=== PATIENT | male | born 1960 | race Caucasian/White ===

== ENCOUNTER 2017-07-06 11:55 | Emergency (ER) | payer MEDICARE, MEDICAID ==
[2017-07-06 11:55] VITALS: BMI 23.0
[2017-07-06 12:03] VITALS: TEMP 98.1
--- NOTE | 2017-07-06 12:37 | ED PDOC ---
Arrival/HPI - General Chief Complaint: ENT Problem Time Seen by Provider: 07/06/17 12:34 Historian: Patient - History of Present Illness Narrative History of Present Illness (Text): 07/06/17 12:37 Mercedes Caruso is a 57 year old male, with no significant past medical history , who presents to the emergency department complaining of bilateral ear pain for 3 weeks. He describes the pain as a ringing. Denies uri symptoms. Patient' s mother is in the emergency department for similar symptoms. Patient denies any fever, sore throat, chills, chest pain, shortness of breath, nausea, vomiting, diarrhea, back pain, neck pain, headache, dizziness or any other complaints. 07/06/17 13:23 Time/Duration: < month (3 weeks) Symptom Onset: Gradual Symptom Course: Unchanged Activities at Onset: Light Context: Home Past Medical History - Provider Review Nursing Documentation Reviewed: Yes - Infectious Disease Hx of Infectious Diseases: None - Cardiac Hx Cardiac Disorders: No - Pulmonary Hx Respiratory Disorders: No - Neurological Hx Neurological Disorder: No - HEENT Hx HEENT Disorder: No - Renal Hx Renal Disorder: No - Endocrine/Metabolic Hx Endocrine Disorders: Yes Hx Diabetes Mellitus Type 1: Yes - Hematological/Oncological Hx Blood Disorders: Yes Hx Hepatitis C: Yes - Integumentary Hx Dermatological Disorder: No - Musculoskeletal/Rheumatological Hx Musculoskeletal Disorders: No - Gastrointestinal Hx Gastrointestinal Disorders: Yes Hx Gall Bladder Disease: Yes - Genitourinary/Gynecological Hx Genitourinary Disorders: No - Psychiatric Hx Psychophysiologic Disorder: No Hx Substance Use: No - Surgical History Hx Cholecystectomy: Yes - Anesthesia Hx Anesthesia: Yes Hx Anesthesia Reactions: No Hx Malignant Hyperthermia: No - Suicidal Assessment Feels Threatened In Home Enviroment: No Family/Social History - Physician Review Nursing Documentation Reviewed: Yes Family/Social History: Unknown Family HX Smoking Status: Never Smoked Hx Alcohol Use: No Hx Substance Use: No Hx Substance Use Treatment: No Allergies/Home Meds Allergies/Adverse Reactions: Allergies Penicillins Allergy (Verified 07/06/17 11:58) ANAPHYLAXIS Home Medications: Home Meds Medication Instructions Recorded Confirmed Glipizide 5 mg PO DAILY 07/19/12 07/06/17 Metformin HCl [Metformin HCl] 1,000 mg PO BID 07/19/12 07/06/17 Review of Systems - Physician Review All systems were reviewed & negative as marked: Yes - Review of Systems Constitutional: Normal Eyes: Normal ENT: Tinnitus Respiratory: Normal. absent: SOB, Cough Cardiovascular: Normal. absent: Chest Pain Gastrointestinal: Normal. absent: Abdominal Pain, Diarrhea, Nausea, Vomiting Genitourinary Male: Normal. absent: Dysuria, Frequency, Hematuria, Urinary Output Changes Musculoskeletal: Normal. absent: Back Pain, Neck Pain Skin: Normal. absent: Rash Neurological: Normal. absent: Headache, Dizziness Endocrine: Normal Hemo/Lymphatic: Normal Psychiatric: Normal Physical Exam - Physical Exam Narrative Physical Exam (Text): 07/06/17 12:41 Constitutional: No acute distress. Head: Normocephalic. Atraumatic. Eyes: PERRL. ENT: Moist mucous membranes. Neck: Supple. Cardiovascular: Regular rate. Chest: No tenderness. Respiratory: Clear to auscultation bilaterally. GI: Soft. Nontender. Nondistended. Back: No CVA tenderness. Musculoskeletal: No tenderness or swelling of extremities. Skin: No rash. Neurologic: Alert, no focal deficit. Vital Signs Reviewed: Yes Vital Signs Temp Pulse Resp BP Pulse Ox 07/06/17 12:55 70 20 118/71 100 07/06/17 11:59 98.1 F 89 16 144/86 95 Temperature: Afebrile Blood Pressure: Normal Pulse: Regular Respiratory Rate: Normal Appearance: Positive for: Well-Appearing, Non-Toxic, Comfortable Pain Distress: None Mental Status: Positive for: Alert and Oriented X 3 Medical Decision Making ED Course and Treatment: 07/06/17 12:35 Tinnitus x 3 weeks. Similar complaints as mother. No sign of infection. No fever or uri compalints 07/06/17 12:41 Impression: 57 year old male presents to the emergency department complaining of tinnitus for 3 weeks. Plan: -- Reassess and disposition Prior Visits: Notes and results from previous visits were reviewed. Patient was last seen in the emergency department on Progress Notes: Patient instructed to follow with ENT doctor and Neurology 07/06/17 13:23 - Medication Orders Current Medication Orders: Discontinued Medications Ibuprofen (Motrin Tab) 600 mg PO STAT STA Stop: 07/06/17 12:52 Last Admin: 07/06/17 12:55 Dose: 600 mg MAR Pain/Vitals Document 07/06/17 12:55 GMD (Rec: 07/06/17 12:55 GMD [id number]) Pain Reassessment Is This A Pain ReAssessment? No Presence of Pain Presence of Pain Yes Location Left, Right or Bilateral Bilateral Pain Location Body Site Ear - Scribe Statement The provider has reviewed the documentation as recorded by the Scribe Su Rivers All medical record entries made by the Scribe were at my direction and personally dictated by me. I have reviewed the chart and agree that the record accurately reflects my personal performance of the history, physical exam, medical decision making, and the department course for this patient. I have also personally directed, reviewed, and agree with the discharge instructions and disposition. Disposition/Present on Arrival - Present on Arrival Any Indicators Present on Arrival: No History of DVT/PE: No History of Uncontrolled Diabetes: Yes Urinary Catheter: No History of Decub. Ulcer: No History Surgical Site Infection Following: None - Disposition Have Diagnosis and Disposition been Completed?: Yes Diagnosis: Tinnitus, Ear pain Disposition: HOME/ ROUTINE Disposition Time: 12:35 Patient Plan: Discharge Condition: GOOD Discharge Instructions (ExitCare): Tinnitus (Ringing in the Ears) Additional Instructions: Follow-up with ENT and neurology. Follow-up with PMD within 2 days. Return to ED if condition worsens Referrals: Jay West MD [Primary Care Provider] - Follow up with primary Brant Ovalle DO [Staff Provider] - Follow up with primary Rock Lunsford MD [Staff Provider] - Follow up with primary Forms: [employer] ([place])
[2017-07-06 12:56] VITALS: BP 118/71; PULSE 70; RESP 20; O2SAT 100
== END 2017-07-06 12:56 | disposition home or self-care (01) ==
LOC: ED 11:55
DX: H93.13 Tinnitus, bilateral (principal); H92.03 Otalgia, bilateral